=== PATIENT | male | born 1930 | race Caucasian/White ===

== ENCOUNTER 2016-08-21 20:55 | Inpatient (IN) | payer OTHER ==
[~2016-08-21] VITALS: Ht 172.7 cm; Wt 74.8 kg
--- NOTE | ~2016-08-21 | D ---
[facility] [place] [address] DISCHARGE SUMMARY Name: KARLEE GLOVER Room #: 461-P [facility] IN M.R.#: [id number] Admission: 08/21/16 Attend Phys: Nilam Vazquez MD Discharge: 08/24/16 Date of : 31 Report #: [id number] THIS REPORT FOR: //name// CC: Shaun Vazquez FINAL DIAGNOSES: 1. Acute low back pain. 2. Hypertension. 3. Diabetes type 2. 4. Parkinsonism. 5. Senile dementia with delusional features. HOSPITAL COURSE: The patient was admitted from his care facility with confusion and back pain. Workup did not reveal any acute medical process. I discussed the case with Dr. Vazquez. He had a lot of confusion and poor memory, was seen by the psychiatry service and diagnosed with delusions related to his underlying dementia. BuSpar was increased. His other home medications were continued. He had no other interval complication. He was not a danger to self or others. PHYSICAL EXAMINATION: GENERAL: On the day of discharge, he was awake and alert. VITAL SIGNS: Stable. LUNGS: Clear. HEART: Regular. ABDOMEN: Soft. EXTREMITIES: Showed no edema. DISPOSITION: He will return to [facility], diabetic diet, activity as tolerated and resume all home medications with BuSpar 5 mg q.i.d. and hydrocodone 5 mg q. 4 hours p.r.n. pain. He will continue his do not resuscitate status. <ELECTRONICALLY SIGNED> By: Glenn Hodge MD 08/25/16 0954 1316 1341 Glenn Hodge MD /nt
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
--- NOTE | ~2016-08-21 | EKG ---
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
[~2016-08-21 20:55] MED LIST: ACIDOPHILUS1 EACH PO; ADULT LOW DOSE81 MG PO; AMARYL4 MG PO; ARICEPT 5 MG TAB5 MG PO; AUGMENTIN PO; BUSPIRONE HCL5 MG PO; BYDUREON2 MG PO; CAL-GEST200 MG PO; CARBIDOPA-LEVO1 EAC1; COLACE100 MG PO; DARVOCET-N 1001 EACH PO; DUONEB 2.5-0.5 M3 ML INH; FLOMAX0.4 MG PO; GABAPENTIN 100100 MG PO; HYDRALAZINE 2525 MG PO; HYDROCHLOROTHIA25 M2 PO; HYDROCODONE-AP1 EAC6 PO; LANTUS SUBQ; LANTUS100 UNIT/M SUBQ; LASIX 40 MG TAB40 M2 PO; LEXAPRO 10 MG T10 M1 PO; LOPERAMIDE 2 MG2 M1 PO; LOPRESSOR25 PO; MAGNESIUM OXID400 MG PO; MAGNESIUM400 MG PO; MAPAP500 MG PO; MELATONIN3 MG PO; METFORMIN HCL500 MG PO; NAMENDA 10 MG T10 MG PO; NAMENDA XR28 MG PO; NORCO 5-325 TA1 EACH PO; POTASSIUM20 PO; PROSCAR 5MG TABL5 MG PO; PROTONIX40 M1 PO; RAMIPRIL10 MG PO; REQUIP 0.25 M0.25 MG PO; SEROQUEL 25 MG25 M1 PO; SEROQUEL 50 MG50 M1 PO; SINEMET 25-1001 EAC1 PO; SINEMET 25-2501 EAC1 PO; TUMS PO; VITAMIN B COMP1 EACH PO; VITAMIN D1000 UNI1 PO; ZOCOR40 MG PO
[2016-08-21 20:57] VITALS: BP 205/65
[2016-08-21 21:14] LABS: ABSOLUTE NEUTROPHILS 3.6 thou/uL (1.4-8.2); BASOPHILS 0.6 % (0.0-2.0); EOSINOPHILS 2.5 % (0.0-3.0); HEMATOCRIT 40.1 % (42.0-52.0); HEMOGLOBIN 13.6 gm/dL (14.0-18.0); LYMPHOCYTES 27.6 % (24.0-44.0); MCH 31.6 pg (26.0-34.0); MCV 93.2 fL (80.0-100.0); MONOCYTES 8.3 % (1.0-8.0); PLATELET COUNT 148 thou/uL (150-400); RDW 13.2 % (10.5-14.5)
[2016-08-21 21:27] LABS: ANION GAP 7 mmol/L (7-16); BUN 18 mg/dL (7-18); CALCIUM 8.7 mg/dL (8.5-10.1); CHLORIDE 103 mmol/L (98-107); CO2 30 mmol/L (21-32); CREATININE 0.7 mg/dL (0.7-1.3); GLUCOSE 197 mg/dL (74-106); POTASSIUM 4.5 mmol/L (3.5-5.1); SODIUM 140 mmol/L (136-145); TROPONIN-I < 0.04 ng/mL (<0.04-0.07)
[2016-08-21 21:31] LABS: MANUAL DIFF NO
[2016-08-21] MEDS ORDERED: RIVASTIGMINE1 EACH TD (22:06)
[2016-08-21] MEDS ORDERED: ALTACE10 MG PO (22:08)
[2016-08-21] MEDS ORDERED: NAMENDA 5 MG TAB5 M1 PO (22:10)
[2016-08-21] MEDS ORDERED: NUPLAZID17 MG PO (22:13)
[2016-08-21 23:58] VITALS: BP 150/77
[2016-08-22 00:19] VITALS: BP 126/72
[2016-08-22] MEDS ORDERED: REMERON15 MG PO (00:58)
[2016-08-22] MEDS ORDERED: APAP500 PO (01:08)
[2016-08-22 03:23] VITALS: BP 145/64
[2016-08-22 08:10] VITALS: BP 185/70
[2016-08-22 12:30] VITALS: BP 136/64
[2016-08-22 15:45] VITALS: BP 144/93
[2016-08-22 19:37] VITALS: BP 165/86
[2016-08-23 04:03] VITALS: BP 201/76
[2016-08-23 05:40] VITALS: BP 147/76
[2016-08-23 08:07] VITALS: BP 199/78
[2016-08-23 12:20] VITALS: BP 145/79
[2016-08-23 15:27] VITALS: BP 180/69
[2016-08-23 19:25] VITALS: BP 172/86
[2016-08-24 00:20] VITALS: BP 172/76
[2016-08-24 03:22] VITALS: BP 166/76
[2016-08-24 07:18] VITALS: BP 145/71
[2016-08-24 11:50] VITALS: BP 171/94
== END 2016-08-24 16:34 | DRG 554 ==
LOC: ER 20:55 → EROBS 23:14 → 4W 23:14
PROVIDERS: Emergency Medicine
DX: M13.88 Other specified arthritis, other site (principal); F02.81 Dementia in other diseases classified elsewhere, unspecified severity, with behavioral disturbance; M54.9 Dorsalgia, unspecified; I10 Essential (primary) hypertension; G20 Parkinson's disease; F43.10 Post-traumatic stress disorder, unspecified; F22 Delusional disorders; E11.9 Type 2 diabetes mellitus without complications; Z79.4 Long term (current) use of insulin; Z90.49 Acquired absence of other specified parts of digestive tract; Z88.8 Allergy status to other drugs, medicaments and biological substances
CPT/HCPCS: 10045

== ENCOUNTER 2016-09-23 12:49 | Observation (INO) | payer OTHER ==
[~2016-09-23] VITALS: Ht 182.9 cm; Wt 74.8 kg
--- NOTE | ~2016-09-23 | D ---
[facility] [place] [address] DISCHARGE SUMMARY Name: KARLEE GLOVER Room #: 303-P [facility] Miguel#: [id number] Admission: 09/23/16 Attend Phys: Glenn Hodge MD Discharge: 09/24/16 Date of : 31 Report #: [id number] THIS REPORT FOR: //name// CC: Shaun Hodge FINAL DIAGNOSES: 1. Right shoulder pain. 2. Diabetes type 2. 3. Parkinsonism. 4. Lewy body dementia with delusions. HOSPITAL COURSE: The patient was admitted with complaints of chest pain. However, both through the Emergency Room physician and myself, he was complaining more right shoulder pain. He was diaphoretic and is concerned of combination of some of his medications and therefore, BuSpar was discontinued. Serial cardiac enzymes were negative. Given his advanced age to poor performance status and severe dementia, there were no plans for cardiac workup. PHYSICAL EXAMINATION: GENERAL: On the day of discharge, he was resting comfortably in bed and only complaining of right shoulder pain. VITAL SIGNS: Stable including blood sugars. LUNGS: Clear. HEART: Regular. ABDOMEN: Soft. EXTREMITIES: Showed no edema. DISPOSITION: He will be discharged back to [facility] under the care of Dr. Husain. Do not resuscitate status, diabetic diet, activity as tolerated. Resume all usual medications with the exception of BuSpar. <ELECTRONICALLY SIGNED> By: Glenn Hodge MD 09/25/16 0835 0915 1036 Glenn Hodge MD /vu
--- NOTE | ~2016-09-23 | EKG ---
[address] [address] ELECTROCARDIOGRAM REPORT Name: KARLEE GLOVER Room #: 303-P [facility]#: [id number] Admission: 09/23/16 Attend Phys: Glenn Hodge MD Discharge: Date of : 31 Report #: [id number] THIS REPORT FOR: //name// [facility] ED Test Date: 2016-09-23 Test Time: 12:54:25 Pat Name: KARLEE GLOVER Department: Room: 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 : 1930 Requested By: Kae Wayne Order Number: [id number] MD: Vinh Miller Measurements Intervals [place] Rate: 54 P: 113 ND: 95 QRS: -37 QRSD: 94 T: 63 QT: 463 QTc: 439 Interpretive Statements Supraventricular rhythm, unable to assess due to marked artifact Left axis deviation Artifact in multiple lead(s) Compared to ECG 08/21/2016 21:14:10 No significant change was found Electronically Signed On 09-24-2016 7:43:52 CDT by Vinh Miller [email or web address] <ELECTRONICALLY SIGNED> By: Vinh Miller MD, FACC 09/24/16 0743 1254 1254 Vinh Miller MD, [facility] /EPI
--- NOTE | ~2016-09-23 | H ---
[facility] [place] [address] HISTORY AND PHYSICAL Name: KARLEE GLOVER Room #: 303-P [facility] M.Charles#: [id number] Admission: 09/23/16 Attend Phys: Glenn Hodge MD Discharge: Date of : 31 Report #: [id number] THIS REPORT FOR: //name// CC: Shaun Hodge DATE OF SERVICE: 09/23/2016 CHIEF COMPLAINT: Chest pain. HISTORY OF PRESENT ILLNESS: The patient is an 86-year-old gentleman, with a history of dementia, who was sent to the emergency room from [facility], where he lives for evaluation of chest pain. He said he is having pain in the right upper chest wall that radiates to his shoulder, and his symptoms began this morning. There is no other information from the facility to correlate his symptoms or time frame of issues. He reported chest pain to the staff there, and he was directed to the emergency room. He has received aspirin 325 mg and 1 sublingual nitroglycerin. When I asked him where his pain was, he said it is in his right shoulder. He was able to move his arm without any difficulty. He was denying any chest pain. He does appear diaphoretic. PAST MEDICAL HISTORY: Diabetes type 2, parkinsonism, Lewy body dementia with delusions, BPH, asthma, chronic back pain, and hypertension. He was hospitalized about a month ago for evaluation of his dementia. PAST SURGICAL HISTORY: Unknown. FAMILY HISTORY: Unknown. SOCIAL HISTORY: He lives at [facility], unknown alcohol or tobacco use history. ALLERGIES: PRIMIDONE AND ROTIGOTINE. MEDICATIONS: DuoNeb, vitamins, Amaryl 4 mg, Buspar 5 mg q.i.d., Sinemet 25/250 mg b.i.d., Exelon patch, Lexapro 20 mg, Lopressor 25 mg b.i.d., Remeron 7.5 mg at bedtime, Namenda 5 mg b.i.d., Nuplazid 17 mg daily, finasteride 5 mg, Protonix, Seroquel 25 mg, Flomax 0.4 mg, and Tylenol. REVIEW OF SYSTEMS: Other than complaining of his shoulder pain, he denies headache, shortness of breath, abdominal pain, nausea, vomiting, or diarrhea. OBJECTIVE: VITAL SIGNS: Pulse 60, respirations 18, blood pressure 178/92, O2 sat 99% on room air. GENERAL: He is awake and alert, in no distress. [address] [address] HISTORY AND PHYSICAL Name: KARLEE GLOVER Room #: 303-P [facility].#: [id number] Admission: 09/23/16 Attend Phys: Glenn Hodge MD Discharge: Date of : 31 Report #: [id number] HEENT: Unremarkable. LUNGS: Clear. HEART: Regular. ABDOMEN: Soft and normoactive bowel sounds. EXTREMITIES: No edema. He has some mild tenderness to the shoulder, but there is no crepitus, there is no bruising. He has full range of motion of both arms. NEUROLOGIC: He is alert, pleasantly confused, not oriented to date or situation or surroundings. He does appear diaphoretic. LABORATORY DATA: Reviewed and I discussed his situation with the ER physician. ASSESSMENT: 1. Chest pain. 2. Parkinsonism. 3. Lewy body dementia with delusions. 4. Diabetes type 2. 5. Hypertension. PLAN: Given his underlying condition with dementia along with poor performance status, we will take a conservative approach at this point just with serial cardiac enzymes and medical treatment. I do not envision putting him through any exhaustive or extensive cardiac workup, but merely treat symptomatically. I wonder whether some of his diaphoresis related to his psychiatric medications, and so while we have him here, I will try to minimize and see if this is a potential side effect. He has do not resuscitate order from the facility, which we will continue here. <ELECTRONICALLY SIGNED> By: Glenn Hodge MD 09/24/16 0936 1405 1720 Glenn Hodge MD /nt
[2016-09-23 12:49] VITALS: BP 178/92
[~2016-09-23 12:49] MED LIST changes: +ALTACE10 MG PO; +APAP500 PO; +NAMENDA 5 MG TAB5 M1 PO; +NUPLAZID17 MG PO; +REMERON15 MG PO; +RIVASTIGMINE1 EACH TD
[2016-09-23] MEDS ORDERED: AMARYL4 MG PO (13:01)
[2016-09-23] MEDS ORDERED: BUSPIRONE HCL10 MG PO (13:01)
[2016-09-23] MEDS ORDERED: SINEMET 25-2501 EAC1 PO (13:02)
[2016-09-23] MEDS ORDERED: EXELON1 EAC1 TD (13:02)
[2016-09-23] MEDS ORDERED: LANTUS SOL100 UNIT/1 SQ (13:02)
[2016-09-23] MEDS ORDERED: LEXAPRO20 MG PO (13:03)
[2016-09-23] MEDS ORDERED: REMERON15 MG PO (13:03)
[2016-09-23] MEDS ORDERED: LOPRESSOR25 PO (13:03)
[2016-09-23] MEDS ORDERED: PROTONIX40 M1 PO (13:04)
[2016-09-23] MEDS ORDERED: FINASTERIDE5 MG PO (13:04)
[2016-09-23] MEDS ORDERED: UNICOMPLEX M TA1 TA1 PO (13:04)
[2016-09-23] MEDS ORDERED: NUPLAZID17 MG PO (13:04)
[2016-09-23] MEDS ORDERED: NAMENDA 5 MG TAB5 M1 PO (13:04)
[2016-09-23] MEDS ORDERED: SEROQUEL 25 MG25 M1 PO (13:05)
[2016-09-23] MEDS ORDERED: FLOMAX0.4 MG PO (13:05)
[2016-09-23] MEDS ORDERED: B COMPLETE1 EAC1 PO (13:05)
[2016-09-23] MEDS ORDERED: TYLENOL325 MG PO (13:05)
[2016-09-23 13:09] LABS: ABSOLUTE NEUTROPHILS 4.2 thou/uL (1.4-8.2); BASOPHILS 0.5 % (0.0-2.0); HEMATOCRIT 38.3 % (42.0-52.0); HEMOGLOBIN 13.1 gm/dL (14.0-18.0); LYMPHOCYTES 24.1 % (24.0-44.0); MCH 31.5 pg (26.0-34.0); MCHC 34.3 g/dL (28.0-37.0); MCV 91.9 fL (80.0-100.0); MONOCYTES 8.5 % (1.0-8.0); PLATELET COUNT 146 thou/uL (150-400); POLYS 63.9 % (36.0-66.0); RBC 4.17 mil/uL (4.50-6.00); RDW 13.7 % (10.5-14.5); WBC 6.6 thou/uL (4.0-11.0)
[2016-09-23 13:10] LABS: MANUAL DIFF NO
[2016-09-23 13:17] LABS: ANION GAP 5 mmol/L (7-16); BUN 18 mg/dL (7-18); CALCIUM 8.5 mg/dL (8.5-10.1); CHLORIDE 105 mmol/L (98-107); CO2 30 mmol/L (21-32); CREATININE 0.9 mg/dL (0.7-1.3); GLUCOSE 154 mg/dL (74-106); POTASSIUM 4.3 mmol/L (3.5-5.1); SODIUM 140 mmol/L (136-145)
[2016-09-23 13:25] LABS: TROPONIN-I < 0.04 ng/mL (<0.04-0.07)
[2016-09-23 13:49] LABS: URINE BILIRUBIN NEGATIVE (Negative); URINE BLOOD NEGATIVE (Negative); URINE COLOR YELLOW; URINE GLUCOSE-RANDOM* TRACE (Negative); URINE KETONES NEGATIVE (Negative); URINE NITRITE NEGATIVE (Negative); URINE PROTEIN (DIPSTICK) NEGATIVE (Negative); URINE UROBILINOGEN 0.2 E.U./dl (0.2-1.0)
[2016-09-23 14:31] VITALS: BP 212/102
[2016-09-23 15:00] VITALS: BP 149/70
[2016-09-23 20:25] VITALS: BP 150/87
[2016-09-24 04:09] VITALS: BP 174/77
[2016-09-24 08:40] VITALS: BP 102/90
[2016-09-24] MEDS ORDERED: ASPIR 8181 MG PO (09:10)
[2016-09-24] MEDS ORDERED: NITROGLYCERIN0.4 MG SUBLING (09:12)
== END 2016-09-24 14:14 ==
LOC: ER 12:49 → EROBS 13:45 → 3N 14:55
PROVIDERS: Emergency Medicine
DX: R07.9 Chest pain, unspecified (principal); E11.8 Type 2 diabetes mellitus with unspecified complications; N40.0 Benign prostatic hyperplasia without lower urinary tract symptoms; J45.909 Unspecified asthma, uncomplicated; I10 Essential (primary) hypertension; G31.83 Neurocognitive disorder with Lewy bodies; F02.81 Dementia in other diseases classified elsewhere, unspecified severity, with behavioral disturbance; M25.511 Pain in right shoulder
CPT/HCPCS: 23019